=== PATIENT | male | born 1940 | race Caucasian/White ===

== ENCOUNTER → 2016-10-17 | Outpatient (CLI) | payer BC ==
[~2016-10-17] MED LIST: ALLO1TAB51 PO; CHOL1000 PO; GLUCTAB7 PO; LISI-461 PO; MULTTAB58 PO; PRLSR20 PO; VITA400C15 PO; VTMD1000 PO
[2016-10-17 12:18] LABS: BASO % 0.6 %; BASO ABS # 0.03 K/uL (0-0.2); COMPLETE YES; EOS % 5.4 %; HEMATOCRIT 43.4 % (42-52); IG% 0.4 %; LYMPH % 29.4 %; LYMPH ABS # 1.59 K/uL (1.2-3.4); MEAN CELL VOLUME 89.7 fL (80-100); MEAN CORPUSCULAR HGB CONC 33.4 g/dl (32-36); MEAN PLATELET VOLUME 10.3 fL (7.4-10.4); MONO % 8.3 %; NEUT % 55.9 %; PLATELET COUNT 201 K/uL (130-400); RED BLOOD COUNT 4.84 M/uL (4.7-6.1)
[2016-10-17 12:39] LABS: ALT/SGPT 20 U/L (12-78); BLOOD UREA NITROGEN 16 mg/dl (7-18); BUN/CREATININE RATIO 14.9 (10-20); CALCIUM 9.8 mg/dl (8.5-10.1); CARBON DIOXIDE 29 mmol/L (21-32); CHLORIDE 106 mmol/L (98-107); GLUCOSE 109 mg/dl (70-99); POTASSIUM 4.4 mmol/L (3.5-5.1); SODIUM 141 mmol/L (136-145)
[2016-10-17 12:41] LABS: ALB/GLOB RATIO 1.2 (0.9-2); ALKALINE PHOSPHATASE 89 U/L (45-117); AST/SGOT 23 U/L (15-37)
== END | disposition home or self-care (01) ==
LOC: C.LABBFT 11:02
PROVIDERS: ATTEND Nurse Practitioner Family
DX: C16.0 Malignant neoplasm of cardia (principal)

== ENCOUNTER → 2016-10-18 | Outpatient (CLI) | payer BC | END | disposition home or self-care (01) | LOC: C.LABSPEC 19:00 | PROVIDERS: ATTEND Nurse Practitioner Family | DX: C15.9 Malignant neoplasm of esophagus, unspecified (principal) ==

== ENCOUNTER → 2016-11-16 | Outpatient (CLI) | payer BC ==
[2016-11-16 12:21] LABS: HEMATOCRIT 44.1 % (42-52); MEAN CELL VOLUME 89.5 fL (80-100); MEAN CORPUSCULAR HEMOGLOBIN 30.2 pg (25-34); MEAN CORPUSCULAR HGB CONC 33.8 g/dl (32-36); MEAN PLATELET VOLUME 10.3 fL (7.4-10.4); PLATELET COUNT 220 K/uL (130-400); RED BLOOD COUNT 4.93 M/uL (4.7-6.1); WHITE BLOOD COUNT 5.45 K/uL (4.8-10.8)
[2016-11-16 12:41] LABS: ALT/SGPT 23 U/L (12-78); AST/SGOT 21 U/L (15-37); BLOOD UREA NITROGEN 17 mg/dl (7-18); BUN/CREATININE RATIO 13.9 (10-20); CALCIUM 10.1 mg/dl (8.5-10.1); CARBON DIOXIDE 28 mmol/L (21-32); CHLORIDE 107 mmol/L (98-107); GLUCOSE 91 mg/dl (70-99); POTASSIUM 4.3 mmol/L (3.5-5.1); SODIUM 143 mmol/L (136-145)
[2016-11-16 12:44] LABS: ALB/GLOB RATIO 1.1 (0.9-2); ALKALINE PHOSPHATASE 78 U/L (45-117); CHOLESTEROL 158 mg/dl (0-200); ESTIMATED AVERAGE GLUCOSE 128 mg/dl; HA1C FLAG Normal (Normal); HDL CHOLESTEROL 40 mg/dl; LDL CHOLESTEROL CALCULATED 93 mg/dl; TRIGLYCERIDES 127 mg/dl (0-150); VERY LOW DENSITY LIPOPROT CALC 25 mg/dl
== END | disposition home or self-care (01) ==
LOC: C.LABBFT 09:24
PROVIDERS: ATTEND Internal Medicine
DX: I10 Essential (primary) hypertension (principal); R73.01 Impaired fasting glucose

== ENCOUNTER → 2017-01-08 | Day surgery (SDC) | payer BC ==
[2016-12-26 10:47] VITALS: Ht 180.3 cm; Wt 109.1 kg
[~2017-01-08] VITALS: Ht 180.3 cm; Wt 109.1 kg
[~2017-01-08] MED LIST changes: +LIDOCAINE HCL 2% 2 ML VIAL (20MG/ML) ONE; +PROPOFOL IV EMULSION 10 MG/ML 20 ML VIAL IV ONE; +SODIUM CHLORIDE 0.9% 500ML 500 ML IV ONE; -VTMD1000 PO
--- NOTE | 2017-01-08 09:08 | Endo History and Physical ---
History & Physical Date of Service: Jan 08, 2017. Chief Complaint: HISTORY OF POLYPS, BARRETTS AND HISTORY OF NEOPLASM OF ESOPHAGUS Referring Physician: DR RUTLEDGE History of Present Illness 76 yo CM who presents for EGD and colonoscopy secondary to Spencer's Esophagus with history of esophageal cancer and history of colon polyps. Past Medical History Neurological Disorder, Endocrine Disorder, Arthritis, Male Genitourinary Prob., Gastrointestinal Disorder, Reflux, Cancer, Hypertension, Other Past Surgical History Hx Cardiac Surgery: No Hx Internal Defibrillator: No Hx Pacemaker: No Hx Abdominal Surgery: Yes (INGUINAL HERNIA REPAIR) Hx of Implantable Prosthesis: No Hx Post-Op Nausea and Vomiting: No Hx Cancer Surgery: Yes (TUMOR REMOVAL IN ESOPHAGUS, BCC REMOVAL) Hx Thoracic Surgery: No Hx Orthopedic: No Hx Urinary Tract Surgery: No Family History Polyp Social History Smoking Status: Never Smoker Hx Substance Use: No Hx Alcohol Use: Yes (OCCASIONAL) Allergies Coded Allergies: No Known Allergies (Unverified , 01/08/17) Current Medications Reported Home Medications Medications Dose Route/Sig Max Daily Dose Days Date Category Vitamin D3 (Cholecalciferol) 1,000 Unit Tab 1 Tab PO QAM 12/26/16 Reported Glucosamine Chondroitin (Mopmpbnhzeq-Kpkgwtjooyq-Omt C-) 1 Tab Tab 1 Tab PO BID 12/26/16 Reported Vitamin E (kh-Bqkjg-Xlnvzlmvnn Acetate) 400 Inter.unit Cap 400 Inter.unit PO QAM 10/09/14 Reported Zestril (Lisinopril) 10 Mg Tab 10 Mg PO QAM 10/09/14 Reported Allopurinol 100 Mg Tab 100 Mg PO QAM 08/13/14 Reported Multivitamin (Multiple Vitamin) 1 Tab Tab 1 Tab PO QAM 09/19/12 Reported Prilosec (Omeprazole) 20 Mg Capcr 20 Mg PO QAM 04/16/09 Reported Vital Signs Weight (Kilograms): 109.09 Height (Feet): 5 Height (Inches): 11 Date Time Temp Pulse Resp B/P Pulse Ox O2 Delivery O2 Flow Rate FiO2 01/08/17 08:55 37.0 71 18 168/89 98 Room Air Physical Exam General Appearance: WD/WN, no apparent distress Respiratory/Chest: Auscultation: breath sounds normal Cardiovascular: Heart Auscultation: RRR Abdomen: Bowel Sounds: normal Inspection & Palpation: soft, non-distended, no tenderness, guarding & rebound Assessment and Plan Assessment: 76 yo CM who presents for EGD and colonoscopy secondary to Spencer's Esophagus with history of esophageal cancer and history of colon polyps. Plan: Proceed with EGD and colonoscopy.
--- NOTE | 2017-01-08 10:05 | GI REPORT ---
Procedure Date: 01/08/2017 9:08 AM Procedure: Upper GI endoscopy Indications: Follow-up of Spencer's esophagus, Follow-up of malignant esophageal adenocarcinoma Medicines: Monitored Anesthesia Care Complications: No immediate complications. Estimated Blood Loss: Estimated blood loss: none. Procedure: Pre-Anesthesia Assessment: - Prior to the procedure, a History and Physical was performed, and patient medications and allergies were reviewed. The patient's tolerance of previous anesthesia was also reviewed. The risks and benefits of the procedure and the sedation options and risks were discussed with the patient. All questions were answered, and informed consent was obtained. Prior Anticoagulants: The patient has taken no previous anticoagulant or antiplatelet agents. ASA Grade Assessment: II - A patient with mild systemic disease. After reviewing the risks and benefits, the patient was deemed in satisfactory condition to undergo the procedure. After obtaining informed consent, the endoscope was passed under direct vision. Throughout the procedure, the patient's blood pressure, pulse, and oxygen saturations were monitored continuously. The scope was introduced through the mouth, and advanced to the second part of duodenum. The upper GI endoscopy was accomplished without difficulty. The patient tolerated the procedure well. Findings: A partial esophagectomy anastomosis was found in the lower third of the esophagus. The stomach was normal. The examined duodenum was normal. Impression: - A partial esophagectomy anastomosis was found. - Normal stomach. - Normal examined duodenum. - No specimens collected. Recommendation: - Resume previous diet. - Continue present medications. - Repeat the upper endoscopy in 3 years for surveillance. - Return to primary care physician as previously scheduled. Yovanny Acosta DO 01/08/2017 10:04:36 AM This report has been signed electronically. Note Initiated On: 01/08/2017 9:08 AM I attest to the content of the Intraoperative Record and orders documented therein, exceptions below
--- NOTE | 2017-01-08 10:09 | GI REPORT ---
Procedure Date: 01/08/2017 9:08 AM Procedure: Colonoscopy Indications: High risk colon cancer surveillance: Personal history of colonic polyps Medicines: Monitored Anesthesia Care Complications: No immediate complications. Estimated Blood Loss: Estimated blood loss: none. Procedure: Pre-Anesthesia Assessment: - Prior to the procedure, a History and Physical was performed, and patient medications and allergies were reviewed. The patient's tolerance of previous anesthesia was also reviewed. The risks and benefits of the procedure and the sedation options and risks were discussed with the patient. All questions were answered, and informed consent was obtained. Prior Anticoagulants: The patient has taken no previous anticoagulant or antiplatelet agents. ASA Grade Assessment: II - A patient with mild systemic disease. After reviewing the risks and benefits, the patient was deemed in satisfactory condition to undergo the procedure. After I obtained informed consent, the scope was passed under direct vision. Throughout the procedure, the patient's blood pressure, pulse, and oxygen saturations were monitored continuously. The scope was introduced through the anus with the intention of advancing to the ileum. The scope was advanced to the ascending colon before the procedure was aborted. Medications were given. The colonoscopy was performed with moderate difficulty due to significant looping, a tortuous colon and the patient's body habitus. Successful completion of the procedure was aided by changing the patient to a supine position, using manual pressure, withdrawing and reinserting the scope and straightening and shortening the scope to obtain bowel loop reduction. The rectum was photographed. The quality of the bowel preparation was good. Findings: Two sessile polyps were found in the transverse colon. The polyps were 6 to 9 mm in size. These polyps were removed with a hot snare. Resection and retrieval were complete. Multiple small-mouthed diverticula were found in the sigmoid colon. Non-bleeding internal hemorrhoids were found during retroflexion. The hemorrhoids were small. Impression: - Two 6 to 9 mm polyps in the transverse colon, removed with a hot snare. Resected and retrieved. - Diverticulosis in the sigmoid colon. - Non-bleeding internal hemorrhoids. Recommendation: - Resume previous diet. - Continue present medications. - Repeat colonoscopy for surveillance based on pathology results. - Return to primary care physician as previously scheduled. - Perform an air contrast barium enema at appointment to be scheduled for evluation of cecum, which was not evaluated on this exam. Yovanny Acosta DO 01/08/2017 10:08:27 AM This report has been signed electronically. Note Initiated On: 01/08/2017 9:08 AM I attest to the content of the Intraoperative Record and orders documented therein, exceptions below
--- NOTE | 2017-01-08 10:10 | Discharge Instructions ---
Endoscopy Patient Instructions Date / Procedure(s) Performed Jan 08, 2017. Colonoscopy, EGD Allergy Information Coded Allergies: No Known Allergies (Unverified , 01/08/17) Discharge Date / Findings Jan 08, 2017. EGD: History of esophagectomy Colonoscopy: Colon polyps, Diverticulosis, Internal hemorrhoids Medication Instructions OK to resume all medications today as prescribed Reported Home Medications Medications Dose Route/Sig Max Daily Dose Days Date Category Vitamin D3 (Cholecalciferol) 1,000 Unit Tab 1 Tab PO QAM 12/26/16 Reported Glucosamine Chondroitin (Uguxpfdzrth-Xqkeccjqcov-Xib C-) 1 Tab Tab 1 Tab PO BID 12/26/16 Reported Vitamin E (it-Hynax-Peebklgzcv Acetate) 400 Inter.unit Cap 400 Inter.unit PO QAM 10/09/14 Reported Zestril (Lisinopril) 10 Mg Tab 10 Mg PO QAM 10/09/14 Reported Allopurinol 100 Mg Tab 100 Mg PO QAM 08/13/14 Reported Multivitamin (Multiple Vitamin) 1 Tab Tab 1 Tab PO QAM 09/19/12 Reported Prilosec (Omeprazole) 20 Mg Capcr 20 Mg PO QAM 04/16/09 Reported Provider Instructions Activity Restrictions - No exercising or heavy lifting for 24 hours. - Do not drink alcohol the day of the procedure. - Do not drive a car or operate machinery until the day after the procedure. - Do not make any important decisions or sign important papers in 24 hours after the procedure. Following Day: - Return to full activity which may include returning to work/school. Diet Start your diet with liquids and light foods (jello, soup, juice, toast). Then eat your usual diet if not nauseated. Treatment For Common After Affects For mild abdominal pain, bloating, or excessive gas: - Rest - Eat lightly - Lie on right side Recommend Barium enema for evaluation of cecum, which was not evaluated on this examination. Follow-Up Information Follow-up with DR RUTLEDGE as scheduled Anesthesia Information What You Should Know You have had a procedure that required some medicine to reduce anxiety and discomfort. This treatment is called moderate sedation. After receiving the treatment, you may be sleepy, but you will be able to breathe on your own. The effects of the treatment may last for several hours. Follow these instructions along with Activity/Diet recommendations noted above: * Do NOT do anything where dizziness or clumsiness would be dangerous. * Rest quietly at home today, then you can be up and about tomorrow. * Have a responsible person stay with you the rest of today. * You may have had an I.V. today. If so, you may take the dressing off later today. Recommendations Call your doctor if: * Trouble breathing * Continuous vomiting for more than 24 hours * Temperature above 101 degrees * Severe abdominal pain or bloating * Pain not relieved by pain medicine ordered * There is increased drainage or redness from any incision * A large amount of rectal bleeding greater than 2-3 tablespoons. (If you had a polyp/s removed or have hemorrhoids, a small amount of blood - from the rectum is to be expected.) * You have any unanswered questions or concerns. IN THE EVENT OF A SERIOUS EMERGENCY, GO TO THE NEAREST EMERGENCY ROOM Your discharge instructions were prepared by provider Yovanny Acosta. Patient Instructions Signature Page Harjit Mireles Patient (or Guardian) Signature/Date: I have read and understand the instructions given to me by my caregivers. Caregiver/RN/Doctor Signature/Date: The above-named patient and/or guardian has received patient instructions on this date. + Original Patient Signature Page (only) stays with chart. Please make copy for patient.
--- NOTE | 2017-01-08 10:24 | Anesthesiology Progress Note ---
Anesthesia Post Op Note Date & Time Jan 08, 2017 at 10:23 Vital Signs Pain Intensity: 2 Vital Signs Past 12 Hours Date Time Temp Pulse Resp B/P Pulse Ox O2 Delivery O2 Flow Rate FiO2 01/08/17 10:16 66 16 104/59 95 Room Air 01/08/17 08:55 37.0 71 18 168/89 98 Room Air Notes Mental Status: alert / awake / arousable, participated in evaluation Pt Amnestic to Procedure: Yes Nausea / Vomiting: adequately controlled Pain: adequately controlled Airway Patency, RR, SpO2: stable & adequate BP & HR: stable & adequate Hydration State: stable & adequate Anesthetic Complications: no major complications apparent
[2017-01-08 10:39] VITALS: BP 119/76; PULSE 57; O2SAT 94
== END | disposition home or self-care (01) ==
LOC: C.GI 08:27
PROVIDERS: ATTEND Internal Medicine
DX: Z12.11 Encounter for screening for malignant neoplasm of colon (principal); Z86.010 Personal history of colon polyps; D12.3 Benign neoplasm of transverse colon; K57.30 Diverticulosis of large intestine without perforation or abscess without bleeding; K64.8 Other hemorrhoids; Z85.01 Personal history of malignant neoplasm of esophagus; Z90.49 Acquired absence of other specified parts of digestive tract; Z98.0 Intestinal bypass and anastomosis status

== ENCOUNTER → 2017-05-29 | Outpatient (CLI) | payer BC ==
[~2017-05-29] MED LIST changes: -LIDOCAINE HCL 2% 2 ML VIAL (20MG/ML) ONE; -PROPOFOL IV EMULSION 10 MG/ML 20 ML VIAL IV ONE; -SODIUM CHLORIDE 0.9% 500ML 500 ML IV ONE
[2017-05-29 12:20] LABS: HEMATOCRIT 44.5 % (42-52); MEAN CELL VOLUME 91.6 fL (80-100); MEAN CORPUSCULAR HEMOGLOBIN 30.2 pg (25-34); MEAN PLATELET VOLUME 9.9 fL (7.4-10.4); PLATELET COUNT 212 K/uL (130-400); RED BLOOD COUNT 4.86 M/uL (4.7-6.1); WHITE BLOOD COUNT 5.41 K/uL (4.8-10.8)
[2017-05-29 12:29] LABS: ALT/SGPT 20 U/L (12-78); BLOOD UREA NITROGEN 17 mg/dl (7-18); BUN/CREATININE RATIO 15.6 (10-20); CALCIUM 10.4 mg/dl (8.5-10.1); CARBON DIOXIDE 29 mmol/L (21-32); CHLORIDE 105 mmol/L (98-107); CHOLESTEROL 154 mg/dl (0-200); GLUCOSE 101 mg/dl (70-99); POTASSIUM 4.8 mmol/L (3.5-5.1); SODIUM 139 mmol/L (136-145)
[2017-05-29 12:32] LABS: ALB/GLOB RATIO 0.9 (0.9-2); ALKALINE PHOSPHATASE 82 U/L (45-117); AST/SGOT 19 U/L (15-37); CHOLESTEROL/HDL RATIO 3.4; HDL CHOLESTEROL 45 mg/dl; LDL CHOLESTEROL CALCULATED 86 mg/dl; TRIGLYCERIDES 114 mg/dl (0-150); VERY LOW DENSITY LIPOPROT CALC 23 mg/dl
[2017-05-29 12:45] LABS: ESTIMATED AVERAGE GLUCOSE 131 mg/dl; HA1C FLAG Normal (Normal)
[2017-05-29 13:33] LABS: LYME DISEASE AB IGM NEG (NEG)
[2017-05-29 13:36] LABS: LYME DISEASE AB IGG NEG (NEG)
== END | disposition home or self-care (01) ==
LOC: C.LABBFT 10:47
PROVIDERS: ATTEND Internal Medicine
DX: Z00.00 Encounter for general adult medical examination without abnormal findings (principal); I10 Essential (primary) hypertension; R73.01 Impaired fasting glucose

== ENCOUNTER → 2017-06-11 | Outpatient (CLI) | payer BC ==
--- NOTE | 2017-06-11 08:46 | DIAGNOSTIC IMAGING REPORT ---
BARIUM ENEMA AIR ROUTINE CLINICAL HISTORY: 76-year-old male with colonoscopy in December, unable to pass through the entire colon, one polyp removed, no complaints. COMPARISON STUDY: CT from 04/06/2014. TECHNIQUE: A standard barium-air contrast enema was performed. Video fluoroscopy was performed for dynamic evaluation. Multiple fluoroscopic spot images of the rectum and colon were obtained, including postevacuation images. FINDINGS: Barium and gas was administered transrectally without difficulty. Pancolonic diverticulosis noted, predominantly in the sigmoid colon. No intraluminal mass is appreciated. All segments of the colon distend normally without evidence of a constricting lesion. Scattered areas of residual stool. Postevacuation imaging demonstrates residual barium contrast with partial decompression of the sigmoid colon. Fluoroscopy dosage (mGy): Not available. Fluoroscopy time: 3.9 minutes. Number of fluoroscopic spot images: 35. IMPRESSION: 1. Diverticulosis. 2. No constricting lesion to suggest colonic malignancy. Electronically signed by: Cody Mcclure M.D. 06/11/2017 8:45 AM Dictated Date/Time: 06/11/2017 8:40 AM
== END | disposition home or self-care (01) ==
LOC: C.RAD 07:32
PROVIDERS: ATTEND Internal Medicine
DX: Z00.00 Encounter for general adult medical examination without abnormal findings (principal); Z86.010 Personal history of colon polyps; K57.90 Diverticulosis of intestine, part unspecified, without perforation or abscess without bleeding

== ENCOUNTER → 2017-07-23 | Outpatient (CLI) | payer BC ==
[2017-07-23 18:07] LABS: CALCIUM 9.9 mg/dl (8.5-10.1)
[2017-07-23 18:26] LABS: CALCIUM URINE < 5.0 mg/dl
[2017-07-23 18:54] LABS: URINE COLLECTION TIME 24 HOURS
== END | disposition home or self-care (01) ==
LOC: C.LABBFT 13:11
PROVIDERS: ATTEND Internal Medicine Endocrinology, Diabetes & Metabolism
DX: E21.3 Hyperparathyroidism, unspecified (principal); E04.2 Nontoxic multinodular goiter

== ENCOUNTER → 2017-07-30 | Outpatient (CLI) | payer BC ==
[2017-07-30 12:46] LABS: URINE COLLECTION TIME 24 HOURS
[2017-07-30 12:47] LABS: CALCIUM URINE < 5.0 mg/dl
== END | disposition home or self-care (01) ==
LOC: C.LABBFT 10:41
PROVIDERS: ATTEND Internal Medicine Endocrinology, Diabetes & Metabolism
DX: E83.52 Hypercalcemia (principal)

== ENCOUNTER → 2017-09-17 | Day surgery (SDC) | payer BC ==
[~2017-09-17] VITALS: Ht 180.3 cm; Wt 104.5 kg
[~2017-09-17] MED LIST changes: +ZOLEDRONIC ACID INJ 5 MG in EMPTY BAG 0 ML IV SCH
[2017-09-17 11:11] VITALS: BP 146/78; PULSE 62; TEMP 36.5; O2SAT 96; Ht 180.3 cm; Wt 104.5 kg
== END | disposition home or self-care (01) ==
LOC: C.MTU 10:30
PROVIDERS: ATTEND Internal Medicine Endocrinology, Diabetes & Metabolism
DX: M85.80 Other specified disorders of bone density and structure, unspecified site (principal)

== ENCOUNTER → 2017-10-19 | Outpatient (CLI) | payer BC ==
[~2017-10-19] MED LIST changes: -ZOLEDRONIC ACID INJ 5 MG in EMPTY BAG 0 ML IV SCH
[2017-10-19 16:57] LABS: BASO % 0.9 %; BASO ABS # 0.05 K/uL (0-0.2); EOS ABS # 0.32 K/uL (0-0.5); HEMATOCRIT 44.9 % (42-52); HEMOGLOBIN 14.9 g/dL (14.0-18.0); IG# 0.03 K/uL (0.00-0.02); LYMPH % 25.6 %; LYMPH ABS # 1.36 K/uL (1.2-3.4); MEAN CELL VOLUME 92.2 fL (80-100); MEAN CORPUSCULAR HEMOGLOBIN 30.6 pg (25-34); MEAN CORPUSCULAR HGB CONC 33.2 g/dl (32-36); MEAN PLATELET VOLUME 10.1 fL (7.4-10.4); MONO % 10.9 %; MONO ABS # 0.58 K/uL (0.11-0.59); NEUT ABS # 2.98 K/uL (1.4-6.5); PLATELET COUNT 200 K/uL (130-400); RED CELL DISTRIBUTION WIDTH CV 13.4 % (11.5-14.5); RED CELL DISTRIBUTION WIDTH SD 44.8 fL (36.4-46.3); WHITE BLOOD COUNT 5.32 K/uL (4.8-10.8)
[2017-10-19 18:08] LABS: ALBUMIN 3.6 gm/dl (3.4-5.0); ALT/SGPT 24 U/L (12-78); AST/SGOT 23 U/L (15-37); BLOOD UREA NITROGEN 19 mg/dl (7-18); CALCIUM 9.3 mg/dl (8.5-10.1); CARBON DIOXIDE 28 mmol/L (21-32); GLUCOSE 73 mg/dl (70-99); POTASSIUM 4.4 mmol/L (3.5-5.1); SODIUM 139 mmol/L (136-145)
[2017-10-19 18:11] LABS: ALKALINE PHOSPHATASE 85 U/L (45-117); TOTAL PROTEIN 7.4 gm/dl (6.4-8.2)
== END | disposition home or self-care (01) ==
LOC: C.LABBFT 14:14
PROVIDERS: ATTEND Internal Medicine Hematology & Oncology
DX: C15.9 Malignant neoplasm of esophagus, unspecified (principal)

== ENCOUNTER → 2017-12-06 | Outpatient (CLI) | payer BC ==
[2017-12-06 17:35] LABS: BASO % 0.6 %; BASO ABS # 0.03 K/uL (0-0.2); EOS % 6.4 %; EOS ABS # 0.31 K/uL (0-0.5); HEMATOCRIT 42.5 % (42-52); HEMOGLOBIN 14.3 g/dL (14.0-18.0); IG# 0.01 K/uL (0.00-0.02); LYMPH % 26.5 %; LYMPH ABS # 1.29 K/uL (1.2-3.4); MEAN CELL VOLUME 91.2 fL (80-100); MEAN CORPUSCULAR HEMOGLOBIN 30.7 pg (25-34); MEAN CORPUSCULAR HGB CONC 33.6 g/dl (32-36); MONO % 9.1 %; MONO ABS # 0.44 K/uL (0.11-0.59); NEUT % 57.2 %; NEUT ABS # 2.78 K/uL (1.4-6.5); PLATELET COUNT 201 K/uL (130-400); RED CELL DISTRIBUTION WIDTH SD 46.3 fL (36.4-46.3); WHITE BLOOD COUNT 4.86 K/uL (4.8-10.8)
[2017-12-06 18:12] LABS: ALBUMIN 3.7 gm/dl (3.4-5.0); ALT/SGPT 21 U/L (12-78); BLOOD UREA NITROGEN 14 mg/dl (7-18); CALCIUM 9.8 mg/dl (8.5-10.1); CARBON DIOXIDE 29 mmol/L (21-32); CREATININE 1.16 mg/dl (0.60-1.40); GLUCOSE 101 mg/dl (70-99); POTASSIUM 4.7 mmol/L (3.5-5.1); SODIUM 139 mmol/L (136-145)
[2017-12-06 18:15] LABS: ALKALINE PHOSPHATASE 54 U/L (45-117); AST/SGOT 23 U/L (15-37)
[2017-12-07 06:32] LABS: HEMOGLOBIN A1C 6.1 % (4.5-5.6)
== END | disposition home or self-care (01) ==
LOC: C.LABBFT 11:23
PROVIDERS: ATTEND Internal Medicine
DX: I10 Essential (primary) hypertension (principal); R73.01 Impaired fasting glucose; E21.3 Hyperparathyroidism, unspecified; E55.9 Vitamin D deficiency, unspecified; E83.52 Hypercalcemia; C44.91 Basal cell carcinoma of skin, unspecified; M85.80 Other specified disorders of bone density and structure, unspecified site

== ENCOUNTER → 2017-12-13 | Outpatient (CLI) | payer BC ==
--- NOTE | 2017-12-13 15:58 | DIAGNOSTIC IMAGING REPORT ---
L KNEE 2 VIEWS ROUTINE CLINICAL HISTORY: M25.561 left knee pain COMPARISON: None. DISCUSSION: There are laterally advanced osteoarthritic changes with marked narrowing medial joint compartment. Degenerative changes are also present within the patellofemoral joint with dorsal patellar spurring. There are no fractures. IMPRESSION: 1. No acute fractures 2. Moderately advanced osteoarthritic change Electronically signed by: Boyd Martinez M.D. 12/13/2017 3:56 PM Dictated Date/Time: 12/13/2017 3:56 PM
--- NOTE | 2017-12-13 15:59 | DIAGNOSTIC IMAGING REPORT ---
R KNEE 1 OR 2 VIEWS ROUTINE CLINICAL HISTORY: Bilateral knee pain. No recent trauma. COMPARISON: None FINDINGS: No acute fracture or suspicious lesion is present. There is no definite joint effusion. There is mild prepatellar soft tissue swelling. A few calcifications anterior to the proximal patellar tendon are chronic. There is spurring of the patella at the insertion of quadriceps. There is severe medial compartment joint space narrowing of the right knee. There is mild to moderate patellofemoral compartment joint space narrowing. Moderate osteophytosis is noted. IMPRESSION: 1. No acute fracture. 2. Severe medial compartment osteoarthritis and mild to moderate osteoarthritis within the patellofemoral compartment. 3. Mild prepatellar soft tissue swelling. Electronically signed by: Moi Perez M.D. 12/13/2017 3:57 PM Dictated Date/Time: 12/13/2017 3:55 PM
== END | disposition home or self-care (01) ==
LOC: C.RAD1850 15:27
PROVIDERS: ATTEND Internal Medicine
DX: M25.561 Pain in right knee (principal); M25.562 Pain in left knee; M17.11 Unilateral primary osteoarthritis, right knee